=== PATIENT | female | born 1985 | race Caucasian/White ===

== ENCOUNTER 2023-05-13 13:13 | Inpatient (IN) ==
[~2023-05-13 13:13] MED LIST: ceFAZolin 2000MG 2,000 MG/15 ML SYR IV SCH
[2023-05-13] MEDS ORDERED: LACTATED RINGER'S 1,000 ML IV SCH (13:45)
[2023-05-13] MEDS ORDERED: Patient's ALLERGY Info needs ENTERED SCH (13:45)
--- NOTE | 2023-05-13 13:54 | History & Physical Report ---
Date of Service May 13, 2023 Assessment & Plan (1) Previous delivery affecting , antepartum: Plan: Patient is a 37-year-old -0-0-1 presents with rupture of membranes. Patient has a history of a prior and desires repeat with tubal ligation. Consent forms were reviewed again today and signed. NST reactive. Vitals within normal limits. (2) Elderly multigravida: (3) Gestational diabetes mellitus (GDM) affecting , antepartum: (4) SROM (spontaneous rupture of membranes): History of Present Illness Primary Care Provider: NO PCP Ramin is a 37-year-old -0-0-1 currently at 39 weeks 0 days gestational age presents with rupture of membranes. Reporting mild contractions. Denying any vaginal bleeding. Patient had a history of a prior section and desires repeat with bilateral tubal ligation. complication: Late presentation at 32+ weeks ? VSD on Anatomy * Echo- small VSD AMA Weekly NST's @ 36 weeks Previous C/S WITH TUBAL SCHEDULED FOR 05/14/[address] HINES AND DR[address] CUMMINGS ASSIST GDM @ 35wks *Growth US @ 36wks - 36% EFW, 33% AC. *Weekly NST's Trichomonas in *[facility] 4wks after treatment (05/21/23 or after) OB Labs: Blood Type B Positive 04/04/23 Antibody Screen NEGATIVE 04/04/23 Hemoglobin 12.0 g/dl (12.0-16.0) 04/04/23 Hematocrit 35.7 % (37.0-47.0) L 04/04/23 Mean Corpuscular Volume 97.5 fL (80.0-100.0) 04/04/23 Platelet Count 208 K/uL (130-400) 04/04/23 Rubella IgG Antibody Immune (Immune) 04/04/23 Rapid Plasma Reagin Nonreactive (Nonreactive) 04/04/23 Hepatitis B Surface Antigen. NON-REACTIVE (NON-REACTIVE) 04/04/23 Hepatitis C Antibody (EIA) NON-REACTIVE (NON-REACTIVE) 04/04/23 HIV (1&2) Ag and Ab Confirmation NON-REACTIVE (NON-REACTIVE) 04/04/23 Glucose 1 Hour 50 gm Load 177 mg/dl (70-130) H 04/04/23 OB Optional Labs: Chlamydia trachomatis RNA Not Detected (NotDetected) 04/04/23 Neisseria gonorrhoeae RNA Not Detected (NotDetected) 04/04/23 Allergies Allergy/AdvReac Type Severity Reaction Status Date / Time No Known Allergies Allergy Verified 05/10/23 10:04 Home Medications Medication Instructions Recorded Confirmed Type 21-iron fu-folic acid 1 dose PO DAILY 03/28/23 05/10/23 History [ Complete] metronidazole 500 mg tablet 500 mg PO BID 7 days #14 tabs 04/23/23 05/10/23 Rx Patient History Medical History (Updated 05/13/23 @ 13:53 by Geraldo Cummings MD) Abnormal cytology T. vaginalis- reason for Metronidazole x 7 days Gestational diabetes diet controlled at present History of chicken pox remote hx Surgical History S/P section x1 Family History Denies family history of Ovarian cancer Breast cancer Colorectal cancer Social History (Updated 03/28/23 @ 15:27 by Mesha Bai) Smoking Status: Never smoker Second Hand Exposure: No; Do You Dip or Chew Tobacco: No; Hx Alcohol Use: No Hx Substance Use: No Preferred Language: Kvng Strap Buckler Machine Required: Yes Beliefs That Will Affect Care: None marital status: marital status details: Will (37) Contact [phone] Current Living Situation: Spouse Current Living Situation Comment: lives with spouse, son,no pets current occupational status: unemployed Feels Safe at Home: Yes Assistive Devices: None Physical Exam Genitourinary: normal external appearance Manual OB Exam: + amniotic fluid (Pooling and ferning positive) clear and ferning present OB Exam Monitor Tracing: + external FHT monitor used, + external uterine monitor used, + category I and + normal FHT variability Results & Data Vital Signs (Past 12 Hours) Vital Signs Pulse BP 05/13/23 13:26 75 119/74 Coding Level of Care Code None Diagnoses Previous delivery affecting , antepartum O34.219 Multigravida of advanced maternal age in third trimester O09.523 Trimester: third trimester Gestational diabetes mellitus (GDM) affecting , antepartum O24.419 SROM (spontaneous rupture of membranes) (2) Elderly multigravida Trimester: third trimester Qualified Code(s): O09.523 - Supervision of elderly multigravida, third trimester
[2023-05-13] MEDS ORDERED: Nursing to Pharmacy Communication SCH (14:00)
[2023-05-13] MEDS ORDERED: CITRIC ACID/SODIUM CITRATE 15 ML UDC ONE (14:28)
[2023-05-13 14:30] LABS: Hematocrit (blood only) 37.5 % (37.0-47.0); Hemoglobin 12.7 g/dl (12.0-16.0); Mean Corpuscular Hemoglobin 32.2 pg (25.0-34.0); Mean Corpuscular Hgb Conc 33.9 g/dL (32.0-36.0); Mean Corpuscular Volume 95.2 fL (80.0-100.0); Mean Platelet Volume 11.1 fL (9.4-12.4); Platelet Count 214 K/uL (130-400); RDW Coefficient of Variation 12.7 % (11.5-14.5); RDW Standard Deviation 44.9 fL (36.4-46.3); Red Blood Count 3.94 M/uL (4.20-5.40)
--- NOTE | 2023-05-13 14:31 | Anesthesiology Consultation ---
Date of Service May 13, 2023 Assessment & Plan Chart Review Chart Review: Acceptable Risk for Labor Epidural Consults Requested none History Surgery Operation Date: 05/13/23 15:00 Proposed Procedures p Section in LD - Geraldo Regalado MD Height/Weight Height: 5 ft Weight: 67.132 kg Allergies Allergy/AdvReac Type Severity Reaction Status Date / Time No Known Allergies Allergy Verified 05/10/23 10:04 Medications Home Medications Medication Instructions Recorded Confirmed Last Taken 21-iron fu-folic acid 1 dose PO DAILY 03/28/23 05/13/23 Unknown [ Complete] metronidazole 500 mg tablet 500 mg PO BID 7 days #14 tabs 04/23/23 05/13/23 Unknown NPO Date Last Intake of Fluids: 05/13/23 Time Last Intake of Fluids: 11:00 Date Last Intake of Solids: 05/12/23 Time Last Intake of Solids: 20:00 Past Medical History Medical History Abnormal cytology T. vaginalis- reason for Metronidazole x 7 days Gestational diabetes diet controlled at present History of chicken pox remote hx Past Family History Family History Denies family history of Ovarian cancer Breast cancer Colorectal cancer Past Surgical History Surgical History S/P section x1 Social History Smoking Status: Never smoker Do You Dip or Chew Tobacco: No Hx Alcohol Use: No Hx Substance Use: No substance use type: does not use Physical Exam Vital Signs Last Vital Signs Temp 37.1 C 05/13/23 13:52 Pulse 75 05/13/23 13:26 Resp 20 05/13/23 13:52 BP 119/74 05/13/23 13:26 Testing Laboratory Results 05/13/23 14:13
[2023-05-13] MEDS ORDERED: MoRPHine SULFATE PF 1 MG/ML 10 ML AMP/VIAL INT SPINAL ONE (14:32)
[2023-05-13] MEDS ORDERED: NALOXONE HCL 0.08 MG in SYRINGE 1.8 ML IV PRN (14:32)
[2023-05-13] MEDS ORDERED: diphenhydrAMINE 50 MG/ML VIAL IV PRN (14:32)
[2023-05-13] MEDS ORDERED: NALOXONE HCL 0.4 MG/1 ML VIAL/CARP IV PRN (14:32)
[2023-05-13] MEDS ORDERED: NALOXONE HCL 1 MG in SODIUM CHLORIDE 0.9% 1,000 ML IV PRN (14:32)
[2023-05-13] MEDS ORDERED: HYDROmorphone INJ 0.5 MG/0.5 ML SYR IV PRN (14:32)
[2023-05-13] MEDS ORDERED: MEPERIDINE HCL 25 MG/ML CARP/VIAL IV PRN (14:32)
[2023-05-13] MEDS ORDERED: KETOROLAC 30 MG/ML VIAL IV PRN (14:32)
[2023-05-13] MEDS ORDERED: LACTATED RINGER'S 500 ML IV PRN (14:32)
[2023-05-13] MEDS ORDERED: MoRPHine SULFATE 2 MG/ML CARP IV PRN (14:32)
[2023-05-13] MEDS ORDERED: NALBUPHINE HCL 5 MG in SYRINGE 0 ML IV PRN (14:32)
[2023-05-13] MEDS ORDERED: ePHEDrine sulfate 50 MG/ML AMP IV PRN (14:32)
[2023-05-13] MEDS ORDERED: MoRPHine SULFATE PF 1 MG/ML 10 ML AMP/VIAL ONE (14:36)
[2023-05-13] MEDS ORDERED: DC INTRASPINAL MORPHINE SCH (14:45)
[2023-05-13] MEDS ORDERED: NO NARCOTICS OR SEDATIVES SCH (14:45)
[2023-05-13] MEDS ORDERED: SODIUM CHLORIDE 0.9% 1,000 ML IV SCH (14:45)
[2023-05-13] MEDS ORDERED: OXYTOCIN 10 UNITS/ML VIAL ONE (15:46)
[2023-05-13] MEDS ORDERED: PHENYLEPHRINE 100MCG/ML 5ML SYR ONE (15:47)
[2023-05-13] MEDS ORDERED: HYDROCORTISONE ACETATE 25 MG SUPP PR PRN (16:02)
[2023-05-13] MEDS ORDERED: SENNA 8.6 MG TAB PO PRN (16:02)
[2023-05-13] MEDS ORDERED: BENZOCAINE 20% SPRY 85 APPLN/85 GM CAN EXT PRN (16:02)
[2023-05-13] MEDS ORDERED: DIPHTHERIA/TETANUS/PERTUSSIS Vaccine (Tdap, Age 7+yrs) 0.5mL SYR/VL IM ONE (16:02)
[2023-05-13] MEDS ORDERED: MAGNESIUM HYDROXIDE SUSP 30 ML UDC PO PRN (16:02)
--- NOTE | 2023-05-13 16:02 | Operative Report ---
PG Post Operative Report Pre & Post Diagnosis Operation Date: 05/13/23 15:00 Pre-Op Diagnosis: Rupture of membranes, prior c/section Post-Op Diagnosis: Rupture of membranes, prior c/section I identified the patient and participated in the time-out.: Yes Procedure Operation Date: 05/13/23 15:00 Actual Procedures p Section in LD delivery of live female child at 1517 - Geraldo Regalado MD s Post Tubal Ligation Labor & Deliv - Geraldo Regalado MD Surgeon Geraldo Regalado MD Sonography Technician Nursing staff Estimated Blood Loss 500 Findings Consistent with Post-Op Diagnosis Specimens Fallopian tubes Description of Procedure The patient was taken to the operating room after consents were ensured. Upon presentation, she was properly identified. Spinal anesthesia was obtained without difficulty. The patient was then prepped and draped in normal sterile fashion. Preprocedural timeout was performed. A Pfannenstiel incision was then made with a knife at the prior location. This was carried down to underlying fascia with the Bovie. The fascia was nicked at the midline with a knife and extended laterally with pickups and Oates scissors. The superior aspect of the fascia was grasped with Kochers x2, elevated off the underlying rectus muscles with blunt dissection and Oates scissors. Inferior aspect of the fascia was grasped with Kochers x2, elevated off the underlying rectus muscles using blunt dissection. The midline was then entered bluntly, placed on stretch to provide adequate room for delivery. A low transverse uterine incision was then made with a knife. The uterine cavity and amniotic cavity entered bluntly, placed on stretch to provide adequate room for delivery. Baby was noted to be in cephalic presentation and the head was delivered without difficulty. Body and shoulders quickly followed. was noted to be vigorous soon after delivery and 30 second delayed cord clamping was initiated. Cord was double clamped and cut and taken of the awaiting nursery staff for evaluation. Cord blood was obtained. Attention was then turned to delivery of the placenta, which was delivered intact, 3-vessel cord, with gentle cord traction and uterine massage. The uterus was then exteriorized, wrapped in a wet lap and several passes were made, removing any remaining membranes with a dry lap. The hysterotomy was then reapproximated with 0 Vicryl continuous running locked stitch. The hysterotomy was then reinspected and hemostasis was noted. The tubal ligation portion of the procedure was then initiated. The left fallopian tube was then identified serially cauterized and dissected from the mesosalpinx. The right fallopian tube was identified serially cauterized and dissected from the mesosalpinx. Care was taken to remove the entirety of the fallopian tube including fimbria. The uterus was inspected and noted to be hemostatic. The uterus was then returned to the maternal abdomen. The muscles, subcutaneous and fascial layers were inspected to be hemostatic.The facia was reapproximated with 0 Vicryl in continuous stitch. The subcutaneous layers were reapproximated with 2-0 plain and continuous running stitch in 2 layers. The skin was reapproximated with 3-0 Vicryl with a subcuticular stitch. Needle, sponge, and instrument counts were correct at the completion of the case. Both mother and stable in the immediate post-delivery period I attest to the content of the Intraoperative Record and any orders documented therein. Any exceptions are noted below. OB Procedure charges OB Charges [id number] Add on Tubal for C/S
[2023-05-13] MEDS: SIMETHICONE 80 MG CHEW PO SCH ×2 (18:02→21:43)
--- NOTE | 2023-05-13 19:30 | Anesthesiology Progress Note ---
Date of Service May 13, 2023 Anesthesia Post Procedure Vital Signs Vital Signs: Temp Pulse Resp BP Pulse Ox 05/13/23 18:18 67 100 05/13/23 18:13 69 100 05/13/23 18:11 72 129/70 05/13/23 18:10 18 05/13/23 18:08 74 100 05/13/23 18:03 81 100 05/13/23 17:58 74 99 05/13/23 17:53 69 100 05/13/23 17:48 74 100 05/13/23 17:43 76 100 05/13/23 17:41 87 116/62 05/13/23 17:40 16 05/13/23 17:38 77 100 05/13/23 17:33 70 100 05/13/23 17:28 81 100 05/13/23 17:23 76 100 05/13/23 17:20 74 92 05/13/23 17:18 68 100 05/13/23 17:13 73 100 05/13/23 17:10 18 05/13/23 17:10 66 108/69 05/13/23 17:08 70 100 05/13/23 17:03 72 108/56 L 100 05/13/23 17:00 20 05/13/23 16:58 100 05/13/23 16:58 79 05/13/23 16:58 79 93 05/13/23 16:53 77 100 05/13/23 16:52 83 150/65 H 05/13/23 16:50 16 05/13/23 16:50 80 92 05/13/23 16:48 79 100 05/13/23 16:44 65 105/46 L 05/13/23 16:43 63 100 05/13/23 16:40 18 05/13/23 16:40 84 92 05/13/23 16:38 82 100 05/13/23 16:33 63 100 05/13/23 16:30 16 05/13/23 16:30 62 96/58 L 05/13/23 16:28 64 100 05/13/23 16:23 63 100 05/13/23 16:20 16 05/13/23 16:20 61 92/55 L 05/13/23 16:18 60 100 05/13/23 16:13 71 100 05/13/23 16:12 36.4 C L 20 11/12/23 16:12 64 91/52 L 05/13/23 16:11 66 89/52 L 05/13/23 16:08 58 L 100 05/13/23 13:52 37.1 C 20 05/13/23 13:26 75 119/74 Pain Intensity Lower Abdomen: Pain Intensity: 5 Transfer of Care Handoff Completed per policy Notes Mental Status: alert / awake / arousable and participated in evaluation Nausea / Vomiting: adequately controlled Pain: adequately controlled Airway Patency, RR, SpO2: stable & adequate BP & HR: stable & adequate Hydration State: stable & adequate Neuraxial Anesthesia: was administered and sensory block is resolving Anesthetic Complications: no major complications apparent and Pt Satisfied with anesthetic care
[2023-05-13] MEDS ORDERED: ONDANSETRON INJ 2 MG/ML 2 ML VIAL IV PRN (21:28)
[2023-05-13] MEDS: DOCUSATE SODIUM 100 MG CAP PO SCH (21:43)
[2023-05-13] MEDS: OXYTOCIN/LR 1,002 ML IV SCH (21:55)
[2023-05-14] MEDS: OXYTOCIN/LR 1,002 ML IV SCH ×2 (05:47→19:40)
[2023-05-14] MEDS ORDERED: CITRIC ACID/SODIUM CITRATE 15 ML UDC PO SCH (06:00)
[2023-05-14 06:39] LABS: Hematocrit (blood only) 30.2 % (37.0-47.0); Hemoglobin 10.3 g/dl (12.0-16.0)
--- NOTE | 2023-05-14 07:19 | Obstetrical Progress Note ---
Date of Service May 14, 2023 Assessment & Plan (1) care following delivery: Plan Doing well Encourage ambulation Pain controll Admission and Anticipated Discharge Date Admission Date: May 13, 2023 Supervising Physician Co-Signing Physician Notes Patient seen with resident and agree with the above findings and plan. Routine care. Discussed patient with nursing staff who had no concerns about patient at present Subjective 37 yo post day 1 s/p Doing well this morning. No acute concerns from pt or nursing staff Physical Exam Physical Exam: General: patient resting comfortably, NAD, non-toxic in appearance. Skin: warm, dry, intact HEENT: NC/AT, anicteric sclera, conjunctiva without injection, moist mucus membr anes. Heart: +S1/S2, regular, no m/r/g Lungs: equal air entry bilaterally, no rales/rhonchi/wheezes Abd: +BS, soft, NT/ND, uterine fundus firm at umbilicus, caesarean incision C/D/I. Ext: warm, no clubbing/cyanosis or edema, Abdelrahman's neg. Neuro: Speech intact, no facial droop, moving all extremities on command. Results & Data Vital Signs (Past 12 Hours) Vital Signs Temp Pulse Resp BP Pulse Ox O2 Del Method 05/14/23 05:08 18 99 05/14/23 04:30 18 98 05/14/23 03:45 36.5 C 70 18 104/66 99 Room Air 05/14/23 03:45 18 99 05/14/23 02:19 18 99 05/14/23 01:30 18 98 05/14/23 01:27 36.6 C 83 18 110/68 100 Room Air 05/14/23 00:45 18 99 05/13/23 23:05 18 99 05/13/23 22:15 18 99 05/13/23 21:30 18 100 05/13/23 20:36 36.4 C L 82 18 114/74 99 Room Air 05/13/23 20:36 18 99 Laboratory Results 05/14/23 05/13/23 Range/Units 06:17 14:13 WBC 9.80 (4.8-10.8) K/ul RBC 3.94 L (4.20-5.40) M/uL Hgb 10.3 L 12.7 (12.0-16.0) g/dl Hct 30.2 L 37.5 (37.0-47.0) % MCV 95.2 (80.0-100.0) fL MCH 32.2 (25.0-34.0) pg MCHC 33.9 (32.0-36.0) g/dL RDW Std Deviation 44.9 (36.4-46.3) fL RDW Coeff of Flex 12.7 (11.5-14.5) % Plt Count 214 (130-400) K/uL MPV 11.1 (9.4-12.4) fL Blood Type B Positive Antibody Screen NEGATIVE Resident Activity Tracking Resident Involvement: Resident Care Provided Care Provided: Adult Hospital Medicine
[2023-05-14] MEDS ORDERED: diphenhydrAMINE Capsule 25 MG CAP PO PRN (08:33)
[2023-05-14] MEDS ORDERED: KETOROLAC 30 MG/ML VIAL IV PRN (08:33)
[2023-05-14] MEDS ORDERED: diphenhydrAMINE 50 MG/ML VIAL IV PRN (08:33)
[2023-05-14] MEDS ORDERED: ONDANSETRON INJ 2 MG/ML 2 ML VIAL IV PRN (08:33)
[2023-05-14] MEDS ORDERED: PROMETHAZINE HCL 25 MG in SODIUM CHLORIDE 0.9% 50 ML IV PRN (08:33)
[2023-05-14] MEDS: SIMETHICONE 80 MG CHEW PO SCH ×4 (08:50→21:43)
[2023-05-14] MEDS: PRENATAL VITAMIN 1 TAB PO SCH (08:50)
[2023-05-14] MEDS: DOCUSATE SODIUM 100 MG CAP PO SCH ×2 (08:50→21:43)
[2023-05-14] MEDS: IBUPROFEN 600 MG TAB PO PRN ×2 (08:51→15:56)
[2023-05-14] MEDS: oxyCODONE/ACETAMINOPHEN 5mg/325mg TAB PO PRN ×2 (08:52→15:55)
[2023-05-14] MEDS: FERROUS SULFATE 325 MG TAB PO SCH (09:31)
[2023-05-14] MEDS: LACTATED RINGER'S 1,000 ML IV SCH ×2 (19:37→19:38)
[2023-05-14] MEDS ORDERED: bisacodyL 5 MG TABEC PO SCH (20:00)
[2023-05-15] MEDS: oxyCODONE/ACETAMINOPHEN 5mg/325mg TAB PO PRN ×4 (00:04→16:41)
[2023-05-15] MEDS: IBUPROFEN 600 MG TAB PO PRN ×4 (00:05→16:41)
--- NOTE | 2023-05-15 07:17 | Obstetrical Progress Note ---
Date of Service May 15, 2023 Assessment & Plan (1) care following delivery: Plan Doing well Encourage ambulation Pain control Dc today Admission and Anticipated Discharge Date Admission Date: May 13, 2023 Supervising Physician Co-Signing Physician Notes Resident Physician Supervision Note: I interviewed and examined the patient. Discussed with Dr. Delaney and agree with findings and plan as documented in the note. Any exceptions or clarifications are listed here: POD2 s/p rLTCS. Meeting all pp milestones w/ assistance of translation. VSS, exam benign and wnl. Incision c/d/i. Desires dc home today, stable to do so. Unsure the name of the pharmacy so will wait for friend to come to send rx Documented By: Janet Farmer MD Subjective 37 yo post day 2 s/p Doing well this morning. No acute concerns from per nursing staff Physical Exam Physical Exam: General: patient resting comfortably, NAD, non-toxic in appearance. Skin: warm, dry, intact HEENT: NC/AT, anicteric sclera, conjunctiva without injection, moist mucus membranes. Heart: +S1/S2, regular, no m/r/g Lungs: equal air entry bilaterally, no rales/rhonchi/wheezes Abd: +BS, soft, NT/ND, uterine fundus firm at umbilicus, caesarean incision C/D/I. Ext: warm, no clubbing/cyanosis or edema, Abdelrahman's neg. Neuro: Speech intact, no facial droop, moving all extremities on command. Results & Data Vital Signs (Past 12 Hours) Vital Signs Temp Pulse Resp BP Pulse Ox O2 Del Method 05/14/23 23:50 36.7 C 88 16 99/62 L 98 Room Air 05/14/23 21:15 36.6 C 88 18 96/60 L 98 Room Air Resident Activity Tracking Resident Involvement: Resident Care Provided Care Provided: Adult Hospital Medicine
[2023-05-15] MEDS: FERROUS SULFATE 325 MG TAB PO SCH (08:26)
[2023-05-15] MEDS: DOCUSATE SODIUM 100 MG CAP PO SCH ×2 (08:26→21:21)
[2023-05-15] MEDS: SIMETHICONE 80 MG CHEW PO SCH ×4 (08:26→21:21)
[2023-05-15] MEDS: PRENATAL VITAMIN 1 TAB PO SCH (08:26)
[2023-05-15] MEDS ORDERED: bisacodyL 10 MG SUPP PR PRN (16:02)
[2023-05-16] MEDS: FERROUS SULFATE 325 MG TAB PO SCH (07:46)
[2023-05-16] MEDS: IBUPROFEN 600 MG TAB PO PRN ×2 (07:46→12:52)
[2023-05-16] MEDS: SIMETHICONE 80 MG CHEW PO SCH ×2 (07:46→15:24)
[2023-05-16] MEDS: oxyCODONE/ACETAMINOPHEN 5mg/325mg TAB PO PRN ×2 (07:46→12:52)
[2023-05-16] MEDS: DOCUSATE SODIUM 100 MG CAP PO SCH (07:46)
[2023-05-16] MEDS: PRENATAL VITAMIN 1 TAB PO SCH (07:46)
--- NOTE | 2023-05-16 07:49 | Obstetrical Progress Note ---
Date of Service May 16, 2023 Assessment & Plan (1) care following delivery: Plan Doing well Encourage ambulation Pain control Dc today Admission and Anticipated Discharge Date Admission Date: May 13, 2023 Supervising Physician Co-Signing Physician Notes Resident Physician Supervision Note: Discussed with Dr. Delaney and agree with findings and plan as documented in the note. Any exceptions or clarifications are listed here: [None] Documented By: Kaila Mejia MD, FACOG Subjective 37 yo post day 3 s/p Doing well this morning. No acute concerns from per nursing staff Physical Exam Physical Exam: General: patient resting comfortably, NAD, non-toxic in appearance. Skin: warm, dry, intact HEENT: NC/AT, anicteric sclera, conjunctiva without injection, moist mucus membranes. Heart: +S1/S2, regular, no m/r/g Lungs: equal air entry bilaterally, no rales/rhonchi/wheezes Abd: +BS, soft, NT/ND, uterine fundus firm at umbilicus, caesarean incision C/D/I. Ext: warm, no clubbing/cyanosis or edema, Abdelrahman's neg. Neuro: Speech intact, no facial droop, moving all extremities on command. Results & Data Vital Signs (Past 12 Hours) Vital Signs Temp Pulse Resp BP Pulse Ox O2 Del Method 05/15/23 23:29 36.8 C 92 H 19 99/66 L 99 Room Air Resident Activity Tracking Resident Involvement: Resident Care Provided Care Provided: Adult Hospital Medicine
--- NOTE | 2023-05-18 07:11 | Discharge Summary ---
Date of Service May 18, 2023 Admission HPI Per Admitting Provider Ramin is a 37-year-old -0-0-1 currently at 39 weeks 0 days gestational age presents with rupture of membranes. Reporting mild contractions. Denying any vaginal bleeding. Patient had a history of a prior section and desires repeat with bilateral tubal ligation. complication: Late presentation at 32+ weeks ? VSD on Anatomy * Echo- small VSD AMA Weekly NST's @ 36 weeks Previous C/S WITH TUBAL SCHEDULED FOR 05/14/[address] HINES AND DR[address] CUMMINGS ASSIST GDM @ 35wks *Growth US @ 36wks - 36% EFW, 33% AC. *Weekly NST's Trichomonas in *[facility] 4wks after treatment (05/21/23 or after) OB Labs: Blood Type B Positive 04/04/23 Antibody Screen NEGATIVE 04/04/23 Hemoglobin 12.0 g/dl (12.0-16.0) 04/04/23 Hematocrit 35.7 % (37.0-47.0) L 04/04/23 Mean Corpuscular Volume 97.5 fL (80.0-100.0) 04/04/23 Platelet Count 208 K/uL (130-400) 04/04/23 Rubella IgG Antibody Immune (Immune) 04/04/23 Rapid Plasma Reagin Nonreactive (Nonreactive) 04/04/23 Hepatitis B Surface Antigen. NON-REACTIVE (NON-REACTIVE) 04/04/23 Hepatitis C Antibody (EIA) NON-REACTIVE (NON-REACTIVE) 04/04/23 HIV (1&2) Ag and Ab Confirmation NON-REACTIVE (NON-REACTIVE) 04/04/23 Glucose 1 Hour 50 gm Load 177 mg/dl (70-130) H 04/04/23 OB Optional Labs: Chlamydia trachomatis RNA Not Detected (NotDetected) 04/04/23 Neisseria gonorrhoeae RNA Not Detected (NotDetected) 04/04/23 Discharge Data Consultations 05/13/23 13:33 Consult Anesthesiology Stat Procedures Performed Operation Date: 05/13/23 15:00 Actual Procedures p Section in LD delivery of live female child at 1517 - Geraldo Cummings MD s Post Tubal Ligation Labor & Deliv - Geraldo Cummings MD Hospital Course (1) care following delivery: Patient was admitted for rupture of membranes with prior history of section. Patient opted for repeat with tubal ligation and procedures performed without complication. Patient discharged home on day 3 in stable condition. Provided with both written and verbal discharge instructions. Plan for 6-week follow-up care and otherwise as needed (2) Gestational diabetes mellitus (GDM) affecting , antepartum: Coding Level of Care Code None Diagnoses care following delivery Z39.2 Gestational diabetes mellitus (GDM) affecting , antepartum O24.419
== END 2023-05-16 17:15 | disposition home or self-care (01) | DRG 785 ==
LOC: OPB 13:13 → 4S1 13:14 → 4E2 18:10
PROC: M.PPTLD (2023-05-13 15:00)